=== PATIENT | female | born 1960 | race Caucasian/White ===

== ENCOUNTER → 2024-12-01 10:42 | Outpatient (CLI) | payer MEDICARE, SELFPAY ==
--- NOTE | 2024-12-01 10:44 | DI.RAD.S_ITS ---
PROCEDURE: XR FOOT RT MIN 3V INDICATIONS: foot pain TECHNIQUE: 3 views of the foot were acquired. COMPARISON: None. FINDINGS: Bones: There are no osseous abnormalities Joints: Mild degeneration in the 2nd through 5th interphalangeal joints Soft tissues: There is calcification Achilles and plantar tendon insertions on the calcaneus mild plantar soft tissue swelling noted. IMPRESSION: Mild plantar soft tissue and other chronic findings Dictated by: Thomas Mckee M.D. on 12/02/2024 at 11:26 Approved by: Thomas Mckee M.D. on 12/02/2024 at 11:28
== END ==
PROVIDERS: PCP Family Medicine; Referring Provider Family Medicine; Visit Provider Family Medicine
DX: M79.89 Other specified soft tissue disorders (principal); M79.673 Pain in unspecified foot
CPT/HCPCS: 73630

== ENCOUNTER → 2024-12-17 07:44 | Outpatient (CLI) | payer MEDICARE, SELFPAY | PROVIDERS: PCP Family Medicine; Referring Provider Family Medicine; Visit Provider Family Medicine | DX: R00.2 Palpitations (principal) | CPT/HCPCS: 93246; 93248 ==

== ENCOUNTER → 2025-01-08 06:54 | Outpatient (CLI) | payer MEDICARE, SELFPAY ==
--- NOTE | 2025-01-08 06:55 | DI.ECHO.S_ITS ---
[facility] +---------+ Hospital : : [address] : : [place] : : [id number] : : Phone: [phone] Echocardiogram Report + + :Name: DARIUS ANDERSON Study Date: 01/08/2025 Height: 66 in : :Hospital ReadingLocation: Weight: 185 lb : : Gender: Female BSA: 1.9 m2 : :: 1960 Age: 64 yrs BP: 143/86 mmHg: :Reason For Study: MURMUR : :Ordering Physician: ARIADNE, : :PHILIPP Performed By: Maynor Anderson : :Referring: PHILIPP RON : + + Interpretation Summary Normal sinus rhythm. Normal LV size and wall thickness. Normal wall motion and LV systolic function. Ejection fraction 60-65%. Stage I diastolic dysfunction. Severe left atrial enlargement; otherwise normal chamber sizes. No significant valvular abnormalities. Estimated PA systolic pressure is 28 mmHg assuming right atrial pressure of 3 mmHg. No prior study available for comparison. Procedure: A two-dimensional transthoracic echocardiogram with color flow and Doppler was performed. The study quality was technically good. There is no prior echocardiogram noted for this patient. The patient was in normal sinus rhythm during the exam. Left Ventricle: The left ventricle is normal in size. There is normal left ventricular wall thickness. There is no ventricular septal defect visualized. The ejection fraction is estimated to be 60-65%. There are no focal wall motion abnormalities. Diastolic parameters suggest probable normal left ventricular diastolic function and normal filling pressures. Right Ventricle: The right ventricle is normal in size and function. Atria: The left atrium is severely dilated. Right atrial size is normal. There is no Doppler evidence for an atrial septal defect. The interatrial septum bows toward right atrium consistent with elevated left atrial pressure. Mitral Valve: The mitral valve leaflets appear normal. There is no evidence of stenosis, fluttering, or prolapse. There is no mitral regurgitation noted. Aortic Valve: The aortic valve is trileaflet. The aortic valve opens well. No aortic regurgitation is present. Tricuspid Valve: The tricuspid valve leaflets are thin and pliable. There is trace tricuspid regurgitation. The right ventricular systolic pressure is estimated to be at least 28 mmHg based on an estimated right atrial pressure of 3 mm Hg. Pulmonic Valve: The pulmonic valve leaflets are thin and pliable; valve motion is normal. There is no pulmonic valvular regurgitation. Great Vessels: The aortic root is normal size. The dimensions of the ascending aorta are normal. The pulmonary artery is normal size. The IVC is of normal diameter and collapses greater than 50% with a sniff. This suggests a low right atrial pressure of 3 mm Hg. Pericardium/ Pleura There is no pericardial effusion. There is no pleural effusion. MMode/2D Measurements & Calculations LVIDd: 4.8 cm LVOT diam: 2.0 cm LVIDs: 3.2 cm Ao root diam: 3.4 cm FS: 34.3 % asc Aorta Diam: 3.3 cm EPSS: 0.45 cm IVSd: 0.72 cm LVPWd: 0.78 cm LV alfaro. diameter/BSA (cm/m^2): 2.5 LV sys. diameter/BSA (cm/m^2): 1.6 LA A2 area: 28.1 cm2 RA long axis: 4.2 cm LA A4 area: 29.3 cm2 RA area: 11.4 cm2 LA length (vol): 6.0 cm RA vol: 26.4 ml LA vol: 117.6 ml RA : 13.6 ml/m2 LA vol index: 60.8 ml/m2 IVC diam: 1.9 cm RVD1 (basal): 3.4 cm RVD2 (mid): 3.0 cm TAPSE: 3.1 cm Doppler Measurements & Calculations Ao V2 max: 175.6 cm/sec LVOT Max Lv: 113.0 cm/sec Ao V2 mean: 122.7 cm/sec LV V1 max P.1 mmHg Ao max P.3 mmHg LV V1 VTI: 29.1 cm Ao mean P.6 mmHg BRENDON(I,D): 2.1 cm2 Ao V2 VTI: 42.5 cm BRENDON(V,D): 1.9 cm2 sev ratio: 0.69 BRENDON indexed to BSA (cm^2/m^2): 1.1 MV E max lv: 59.1 cm/sec TR max lv: 252.4 cm/sec MV A max lv: 78.9 cm/sec TR max P.5 mmHg MV E/A: 0.75 PA V2 max: 78.9 cm/sec Med Peak E' Lv: 6.5 cm/sec PA V2 mean: 63.5 cm/sec E/E' med: 9.1 PA mean P.7 mmHg Lat Peak E' Lv: 7.1 cm/sec PA pr(Accel): 49.9 mmHg E/E' lat: 8.4 E/e' average: 8.7 MV dec time: 0.17 sec SV(LVOT): 88.1 ml Electronically signed by: Mattie Humphreys M.D. on [employer] Physician:01/08/2025 05:16 PM
== END ==
PROVIDERS: PCP Family Medicine; Referring Provider Family Medicine; Visit Provider Family Medicine
DX: R01.1 Cardiac murmur, unspecified (principal)
CPT/HCPCS: 93306

== ENCOUNTER → 2025-06-11 08:12 | Outpatient (CLI) | payer MEDICARE, SELFPAY ==
[2025-06-11 10:08] LABS: Influenza A - CEPHEID Flu A NEGATIVE (NEGATIVE); Influenza B - CEPHEID Flu B NEGATIVE (NEGATIVE)
[2025-06-11 10:17] LABS: COVID-19 CEPHEID 4-PLEX PCR Negative (Negative)
== END ==
PROVIDERS: PCP Family Medicine; Visit Provider Nurse Practitioner Family
DX: Z20.828 Contact with and (suspected) exposure to other viral communicable diseases (principal); J02.9 Acute pharyngitis, unspecified
CPT/HCPCS: 87070; 87637